=== PATIENT | male | born 1940 | race Caucasian/White ===

== ENCOUNTER 2022-02-02 16:15 | Outpatient (CLI) | payer OTHER, SELFPAY | END 2022-02-02 16:16 | disposition home or self-care (01) | LOC: NFLDUCREF 02-05 11:24 | PROVIDERS: PCP Internal Medicine; Visit Provider Registered Nurse | DX: R30.0 Dysuria (principal) | CPT/HCPCS: 87086 ==

== ENCOUNTER 2022-03-23 15:48 | Outpatient (CLI) | payer OTHER, SELFPAY ==
[2022-03-23 11:14] LABS: Albumin* 4.3 g/dL (3.3-5.0); Chloride* 108 mmol/L (96-114)
[2022-03-23 11:15] LABS: Potassium* 4.4 mmol/L (3.6-5.1); Sodium* 140 mmol/L (135-149)
[2022-03-23 11:17] LABS: Alkaline Phosphatase* 65 U/L (40-150); Aspartate Amino Transferase* 31 U/L (12-35); Bilirubin Total* 0.9 mg/dL (0.1-1.5); Blood Urea Nitrogen* 23 mg/dL (7-30); Carbon Dioxide* 26 mmol/L (20-32); Cholesterol* 164 mg/dL (90-199); Creatinine* 1.1 mg/dL (0.5-1.5); Estimated Glomerular Filt Rate 67 ml/min; Glucose* 98 mg/dL (60-115); Total Protein* 6.8 g/dL (6.0-8.3); Triglycerides* 136 mg/dL (40-149)
[2022-03-23 11:18] LABS: Alanine Aminotransferase* 22 U/L (4-50); Calcium* 8.9 mg/dL (8.4-10.6); HDL Cholesterol* 47 mg/dL (>=40); LDL Cholesterol Calculated 90 mg/dL (<100)
[2022-03-23 11:47] LABS: PSA Screen* 2.16 ng/mL (0.10-4.00)
== END 2022-03-23 15:49 | disposition home or self-care (01) ==
PROVIDERS: PCP Internal Medicine; Visit Provider Internal Medicine
DX: E78.5 Hyperlipidemia, unspecified (principal); I27.20 Pulmonary hypertension, unspecified; Z12.5 Encounter for screening for malignant neoplasm of prostate
CPT/HCPCS: 80053; 80061; 84153

== ENCOUNTER 2022-05-21 08:59 | Outpatient (CLI) | payer MEDICARE, SELFPAY ==
--- NOTE | 2022-05-21 09:15 | CRLHL7_ITS ---
For Patients: As a result of the Century Cures Act, medical imaging exams and procedure reports are released immediately into your electronic medical record. You may view this report before your referring provider. If you have questions, please contact your health care provider. INDICATION: 81-year-old male. Right knee pain. Possible hip pain. FINDINGS: Informed consent was obtained. Benefits and risks were discussed. The patient agreed to proceed. [place] protocol was followed. TIME-OUT conducted just prior to starting procedure confirmed patient identity, site/side, procedure, patient position, and availability of correct equipment. Pause for cause was performed. Utilizing sterile technique and 1 percent lidocaine for local anesthetic, a 22-gauge spinal needle was advanced into the right hip joint without difficulty. A small amount of nonionic contrast (4-5 cc nonionic Omnipaque 140) ) was instilled demonstrating the needle tip in the joint space. Subsequently, a mixture of 2 cc methylprednisolone 40 mg/mL and 4 cc of xylocaine 1 percent was instilled. The patient tolerated the injection well. No immediate complications. The patient stated that his hip did feel full and he had back pressure shortly after the procedure. This resolved quickly and spontaneously. 1 minute 31 seconds fluoroscopy time utilized. IMPRESSION: Technically successful fluoroscopically-guided right hip injection without immediate complications. Dictated by Teja Ayala MD @ 05/21/2022 11:20:18 AM (Electronically Signed)
== END 2022-05-21 09:00 | disposition home or self-care (01) ==
PROVIDERS: PCP Internal Medicine; Visit Provider Orthopaedic Surgery Sports Medicine
DX: M16.11 Unilateral primary osteoarthritis, right hip (principal)
CPT/HCPCS: 20610; 77002; Q9966

== ENCOUNTER 2022-08-17 14:24 | Outpatient (CLI) | payer MEDICARE, SELFPAY | END 2022-08-17 14:25 | disposition home or self-care (01) | PROVIDERS: PCP Internal Medicine; Visit Provider Internal Medicine | DX: Z01.818 Encounter for other preprocedural examination (principal) | CPT/HCPCS: 80048; 85610 ==

== ENCOUNTER 2022-11-16 08:41 | Outpatient (CLI) | payer MEDICARE, SELFPAY ==
--- OUTSIDE RECORDS SUMMARY | 2022-11-16 08:44 | XMS_ITS | Continuity of Care Document ---
Author Name Unknown Organization Z [facility] Address [address] [place] [address] [address] [place] [address] Phone Care Team Providers Care Spray Painter Helper Name Role Phone Estelita FELIZ, Ruth Unavailable Unavailable Allergies, Adverse Reactions, Alerts Substance Reaction Status Criticality epinephrine mental depression Active No Informa tion Medications Medication Instructions Dosage Effective Dates (start - stop) Status Comments TOPROL XL (unknown strength) Not Available - Active PRAVASTATIN SODIUM (unknown strength) Not Available - Active STANBACK ANALGESIC (unknown strength) Not Available - Active OMEPRAZOLE (unknown strength) Not Available - Active ANDRODERM (unknown strength) Not Available - Active VIAGRA (unknown strength) Not Available - Active VITAMIN C (unknown strength) Not Available - Active Procedures Procedure Date Postop Followup Visit Postop Followup Visit Decompress Lumbar Spinalcord Seg 2011 Pa Assist Decompress Lumbar Spinalcord S eg Office/Outpatient Visit,[facility] 2011 X-Ray Exam Of Lower Spine, Bending Advance Directives Directive Yes / No Effective Date File Name No Information Encounters Encounter Description Practice Location Reason(s) For Visit Diagnoses Date Provider Providers Copied on Encounter Z [facility], [address], [place], [address], [place] tel:[phone] [facility] No Information 4 Estelita Miranda. [facility], [address], [place], [place], [id number] , [place]. [phone] Z [facility], [address] [place] [address], [address], [place] tel:[phone] [facility] No Information Mar-0 201 2 Mehbod Amir. [facility], [address] [place] [address] [address], [place], [place], [id number] , [place]. tel:[phone] Referring Provider: Bennett Hussein [address], [address]. tel:[phone] Z [facility], [address] [place] [address], [address], [place] tel:[phone] [facility] No Information 2 Mehbod Amir. [facility], [address] [place] [address], [place], [id number] , [place]. tel:[phone] Referring Provider: Bennett Hussein [address], [address]. tel:[phone] Z [facility], [address] [place] [address], [address], [place] tel:[phone] [facility] No Information Dec-0 2 Mehbod Amir. [facility], [address] [place] [address] 600, [place], [place], [id number] , [place]. tel:[phone] Referring Provider: Bennett Hussein [address], [address]. tel:[phone] Office/Outpa tient Visit,New, Mod Z [facility], [address], [address], [place] tel:[phone] [facility] Hypertension, UnspecifiedAne pauly 2 Mehbod Amir. [facility], [address] [place] [address] [address], [place], [place], [id number] , [place]. tel:[phone] Family History Family Member Type Diagnosis Age At Onset Problem (finding) Problem (finding) Problem (finding) Payers Payer name Insurance type Covered republican ID Authoriza tion(s) Aetna CI [id number] Social History Type Description Quantity Date Captured Comments Sex Male Smoking Status No Information Chief Complaint And Reason For Visit No Information Reason For Referral Reason For Referral No Information History Of Present Illness Encounter Date Complaint History Of Prese nt Illness No Information Functional Status Date Functional Assessmen t No Information Instructions Date Instruction Additional Infor mation No Information Assessments Type Assessment Date No Information Patient Care Teams Name Effective Dates (start - stop) Status Members No Information
== END 2022-11-16 08:42 | disposition home or self-care (01) ==
PROVIDERS: PCP Internal Medicine; Visit Provider Internal Medicine
DX: J18.9 Pneumonia, unspecified organism (principal)
CPT/HCPCS: 80053

== ENCOUNTER 2023-03-25 08:05 | Outpatient (CLI) | payer MEDICARE, SELFPAY ==
--- OUTSIDE RECORDS SUMMARY | 2023-03-25 11:16 | XMS_ITS | Continuity of Care Document ---
Author Name Unknown Organization Z [facility] Address [address] [place] [address] [address] [place] [address] Phone Care Team Providers Care Business Law Professor Name Role Phone Estelita FELIZ, Ruth Unavailable [...] Assist Decompress Lumbar Spinalcord S eg Office/Outpatient Visit,[facility] 2011 X-Ray Exam Of Lower Spine, Bending Advance Directives Directive Yes / No Effective Date File Name No Information Encounters Encounter Description Practice Location Reason(s) For Visit Diagnoses Date Provider Providers Copied on Encounter Z [facility], [address] [facility] [address], [place], [address], [place] tel:[phone] [facility] Kina No Information 4 Esteliat Miranda. [facility], [address], [place], [place], [id number] , [place]. [phone] Z [facility], [address] [place] [address], [address], [place] tel:[phone] [facility] No Information Mar-0 201 2 Mehbod Amir. [facility], [address] [place] [address] 600, [place], [place], [id number] , [place]. tel:[phone] Referring Provider: Bennett Hussein [address], [address]. tel:[phone] Z [facility], [address] [place] [address], [address], [place] tel:[phone] [facility] No Information 2 Mehbod Amir. [facility], [address] [place] [address], [place], [id number] , [place]. tel:[phone] Referring Provider: Bennett Hussein [address], [address]. tel:[phone] Z [facility], [address] [place] [address], [address], [place] tel:[phone] [facility] No Information Dec-0 2 Mehbod Amir. [facility], [address] [place] [address] [address], [place], [place], [id number] , [place]. tel:[phone] Referring Provider: Bennett Hussein [address], [address]. tel:[phone] Office/Outpa tient Visit,New, Mod Z [facility], [address], [address], [place] tel:[phone] [facility] Hypertension, UnspecifiedAne pauly 2 Mehbod Amir. [facility], [address] [place] [address] [address], [place], [place], [id number] , [place]. tel:[phone] Family History Family Member Type Diagnosis Age At Onset Problem (finding) Problem (finding) Problem (finding) Payers Payer name Insurance type Covered libertarian ID Authoriza tion(s) Aetna CI [id number] Social History Type Description Quantity Date Captured [...]
== END 2023-03-25 08:06 | disposition home or self-care (01) ==
LOC: NFLDREF 11:15
PROVIDERS: PCP Internal Medicine; Referring Provider Internal Medicine; Visit Provider Internal Medicine
DX: E78.5 Hyperlipidemia, unspecified (principal); I27.20 Pulmonary hypertension, unspecified; Z12.5 Encounter for screening for malignant neoplasm of prostate
CPT/HCPCS: 80053; 80061; 84153

== ENCOUNTER 2023-12-09 08:45 | Outpatient (CLI) | payer MEDICARE, SELFPAY ==
--- OUTSIDE RECORDS SUMMARY | 2023-12-10 11:31 | XMS_ITS | Continuity of Care Document ---
Author Organization Z [facility] Address [address] [place] [address] [address] [place] [address] Phone Care Team Providers Care Processing Inspector Name Role Phone Ruth Capone MD Unavailable Unavailable Allergies, Adverse Reactions, Alerts Substance Reaction Status Criticality epinephrine mental depression Active No Informa tion Medications Medication Instructions Dosage Effective Dates (start - stop) Status Comments VITAMIN C (unknown strength) Not Available - Active VIAGRA (unknown strength) Not Available - Active ANDRODERM (unknown strength) Not Available - Active OMEPRAZOLE (unknown strength) Not Available - Active STANBACK ANALGESIC (unknown strength) Not Available - Active PRAVASTATIN SODIUM (unknown strength) Not Available - Active TOPROL XL (unknown strength) Not Available - Active Procedures Procedure Date Postop Followup Visit Postop Followup Visit Decompress Lumbar Spinalcord Seg 2011 Pa Assist Decompress Lumbar Spinalcord S eg [place] [place]am Of Lower Spine, Bending Advance Directives Directive Yes / No Effective Date File Name No Information Encounters Encounter Description Practice Location Reason(s) For Visit Diagnoses Date Provider Providers Copied on Encounter Z [facility], [address] [facility] [address], [place], [address], [place] tel:[phone] [facility] No Information 4 Estelita Miranda. [facility], [address] [place] [address] [address], [place], [place], [id number] , [place]. [phone] Z [facility], [address] [place], [place] [address] [address], [place], [address], [place] tel:[phone] [facility] No Information 3-201 2 Mehbod Amir. [facility], [address], [place], [place], [id number] , [place]. [phone] Referring Provider: Bennett Barrett [address], [place], [address]. tel:[phone] Z [facility], [address], [place], [address], [place] tel:[phone] [facility] No Information 5201 2 Mehbod Amir. [facility], [address], [place], [place], [id number] , [place]. [phone] Referring Provider: Bennett Barrett [address], [place], [address]. tel:[phone] Z [facility], [address], [place], [address], [place] tel:[phone] [facility] No Information 0 -201 2 Mehbod Amir. [facility], [address], [place], [place], [id number] , [place]. [phone] Referring Provider: Bennett Barrett [address], [place], [address]. tel:[phone] Office/[place]pa [place]ient [facility], [address] [place], [place] [address], [place], [address], [place] tel:[phone] [facility] Hypertension, UnspecifiedAne pauly 3[address] 2 Mehbod Amir. [facility], [address], [place], [place], [id number] , [place]. tel:[phone] Family History Family Member Type Diagnosis Age At Onset Problem (finding) Problem (finding) Problem (finding) Payers Payer name Insurance type Covered green party ID Authoriza tion(s) [employer] CI [id number] Social History Type Description Quantity Date Captured [...]
--- OUTSIDE RECORDS SUMMARY | 2023-12-10 11:31 | XMS_ITS | Clinical Summary ---
Author Organization [facility] Address [place], [place] [address] Care Team Providers Care Awning Maker And Installer Name Role Phone Jorge Moreno MD Primary Care Provider Allergies Active Allergy Reactions Criticality Noted Date Comments Epinephrine Mental Status Change 04/28/2007 24-48 hours of depression ?? The medication given to hip in dental office Iron GI Upset 12/29/2011 Medications Medication Sig Dispensed Refills Start Date End Date Status TOPROL XL 100 MG 24 HR TAB take one tablet by mouth daily 0 04/28/2007 Active ASPIRIN 81 MG CHEWABLE TAB take one tablet daily by mouth 0 04/28/2007 Active ANDRODERM 2.5 MG/24 HR TRANSDERM 24 HR PATCH leave it on for 24 h and replace... this was removed this am at 0700 0 04/28/2007 Active VIAGRA 50 MG TAB take one tablet as needed for ed 0 04/28/2007 Active omeprazole (PRILOSEC) 40 mg capsule Take 40 mg by mouth once daily. Active ferrous fumarate-vitamin c, 200-125 mg, 200 mg (66 mg iron)-125 mg Tab Take 1 tablet by mouth once daily with a meal. Takes only when he donates blood. 0 12/24/2011 Active pravastatin (PRAVACHOL) 80 mg tablet Take 80 mg by mouth at bedtime. Active oxyCODONE (ROXICODONE) 5 mg immediate release tablet Take 1-2 tablets by mouth every 4 hours if needed for Pain (For moderate pain). 90 tablet 0 12/30/2011 Active diazepam (VALIUM) 5 mg tablet Take 1 tablet by mouth every 6 hours if needed for Muscle Spasm. 40 tablet 0 12/30/2011 Active sennosides-docusate, 8.6-50 mg, (SENOKOT S) 8.6-50 mg tablet Take 1-4 tablets by mouth 2 times daily. 60 tablet 0 12/30/2011 Active Active Problems Problem Noted Date Diagnosed Date Lumbar radiculopathy - left L4 11/13/2011 Heartburn Overview: No active symptoms, controlled with prilosec. 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 Immunizations Name Administration Dates Next Due Pneumococcal Poly,23-Valent (Pneumovax) 11/27/19 10 Family History Medical History Relation Name Comments Stroke Father Relation Name Status Comments Father Social History Tobacco Use Types Packs/Day Years Used Date Smoking Tobacco: Never Smokeless Tobacco: Never Tobacco Cessation:Counseling Given: No Alcohol Use Standard Drinks/Week Comments Yes 0 (1 standard drink = 0.6 oz pur e alcohol) couple of beers per week Sex and Gender Information Value Date Recorded Sex Assigned at Not on file Gender Identity Not on file Sexual Orientation Not on file Obstetrics History Last Filed Vital Signs Vital Sign Reading Time Taken Comments Blood Pressure 101/56 12/30/2011 7:51 AM CDT Pulse 98 12/30/2011 7:51 AM CDT Temperature 37.3 ??C (99.1 ??F) 12/30/2011 7:51 AM CD T Respiratory Rate 16 12/30/2011 7:51 AM CDT Oxygen Saturation 96% 12/30/2011 7:51 AM CDT Inhaled Oxygen Concentration - - Weight 107.7 kg (237 lb 7 oz) 12/29/2011 10:32 A M CDT Height 177.8 cm (5' 10) 12/29/2011 10:32 AM CDT Body Mass Index 34.07 12/29/2011 10:32 AM CDT Plan of Treatment Health Maintenance Due Date Last Done Comments Tdap 12/13/1950 Depression screening for age 12+ 1951 BMI (ht and wt on same day) for age 18+ 12/13/1957 Tetanus booster 1959 Zoster (shingles) series for age 50+ (1 of 2) 12/13/18 90 Pneumococcal series for age 65+ (2 of 2 - PCV) 011 11/26/2009 COVID-19 vaccine series (2022- season) 3 Influenza for age 65+ 12/26/2023 Advance Directives * Full Code (Latest Code Status on File) Date Activated Date Inactivated Comments 12/29/2011 7:37 PM 12/30/2011 5:46 PM * Full Code Date Activated Date Inactivated Comments 12/29/2011 9:36 AM 12/29/2011 7:37 PM Care Teams Awning Maker And Installer Relationship Specialty Start Date End Date Jorge Moreno MD [address] [place] [address] PCP - General 04/28/07
== END 2023-12-09 08:46 | disposition home or self-care (01) ==
LOC: NFLDREF 12-10 11:29
PROVIDERS: PCP Internal Medicine; Referring Provider Internal Medicine; Visit Provider Internal Medicine
DX: E78.5 Hyperlipidemia, unspecified (principal); D64.9 Anemia, unspecified; Z12.5 Encounter for screening for malignant neoplasm of prostate
CPT/HCPCS: 80053; 80061; G0103

== ENCOUNTER 2023-12-22 14:46 | Outpatient (CLI) | payer MEDICARE, SELFPAY ==
--- OUTSIDE RECORDS SUMMARY | 2023-12-22 14:48 | XMS_ITS | Clinical Summary ---
Author Organization [facility] Address [place], [place] [address] Care Team Providers Care Accounting Bookkeeper Name Role Phone Jorge Moreno MD Primary [...] 9:36 AM 12/29/2011 7:37 PM Care Teams Accounting Bookkeeper Relationship Specialty Start Date End Date Jorge Moreno MD [address] [place] [address] PCP - General 04/28/07
--- OUTSIDE RECORDS SUMMARY | 2023-12-22 14:48 | XMS_ITS | Continuity of Care Document ---
Author Organization Z [facility] Address [address] [place] [address] [address] [place] [address] Phone Care Team Providers Care Partition Making Machine Operator Name Role Phone Ruth Capone MD Unavailable [...] Assist Decompress Lumbar Spinalcord S eg Office/Outpatient Visit,[facility], [facility] [place]Ray Exam Of Lower Spine, Bending Advance Directives Directive Yes / No Effective Date File Name No Information Encounters Encounter Description Practice Location Reason(s) For Visit Diagnoses Date Provider Providers Copied on Encounter Z [facility], [address], [place], [address], [place] tel:[phone] [facility] No Information 4 Estelita Miranda. [facility], [address] [place] [address] [address], [place], [place], [id number] , [place]. [phone] [facility], [address] [place], [place] [address] [address], [place], [address], [place] tel:[phone] [facility] No Information 3-201 2 Mehbod Amir. [facility], [address], [place], [place], [id number] , [place]. [phone] Referring Provider: Bennett Barrett [address], [place], [address]. tel:[phone] [facility], [address], [place], [address], [place] tel:[phone] [facility] No Information 5201 2 Mehbod Amir. [facility], [address], [place], [place], [id number] , [place]. [phone] Referring Provider: Bennett Barrett [address], [place], [address]. tel:[phone] Z [facility], [address], [place], [address], [place] tel:[phone] [facility] No Information 0 -201 2 Mehbod Amir. [facility], [address], [place], [place], [id number] , [place]. [phone] Referring Provider: Bennett Barrett [address], [place], [address]. tel:[phone] Office/Outpa tient Visit,[facility], [facility] [place] [facility], [address] [place], [place] [address] [address], [place], [address], [place] tel:[phone] [facility] Hypertension, UnspecifiedAne pauly 3[address] 2 Mehbod Amir. [facility], [address], [place], [place], [id number] , [place]. tel:[phone] Family History Family Member Type Diagnosis Age At Onset Problem (finding) Problem (finding) Problem (finding) Payers Payer name Insurance type Covered green party ID Authoriza tion(s) [employer] CI [id number] Social History Type Description Quantity Date Captured [...]
--- NOTE | 2023-12-22 15:00 | CRLHL7_ITS ---
For Patients: As a result of the Century Cures Act, medical imaging exams and procedure reports are released immediately into your electronic medical record. You may view this report before your referring provider. If you have questions, please contact your health care provider. INDICATION: Sinus pressure. Drainage. TECHNIQUE: High-resolution CT images through the paranasal sinuses were obtained without contrast multiplanar reconstructions. FINDINGS: Maxillary: The inflammatory mucosal thickening is most prominent at the base of the bilateral maxillary sinuses measures 12 mm or less on the left 10 mm or less on the right. There is associated mucosal narrowing of the bilateral ostiomeatal units. Ethmoid: Opacification of several of the anterior ethmoid air cells bilaterally. Frontal: Moderate inflammatory mucosal thickening in the bilateral frontal air cells and opacification of the inferior frontal recesses bilaterally. Sphenoid: Minimal mucosal thickening near the sphenoid ethmoidal recesses and sphenoid air cells are otherwise clear. Nasal fossa: A demetris bullosa of the right middle nasal turbinate. The small leftward directed nasal septal spur and mild convex right curve of the nasal septum. Nasopharynx unremarkable. Incidentally noted opacifications of numerous left mastoid air cells. There is nonspecific tissue in the left external auditory canal and partial opacification of the left Prussak`s space. Temporal bone CT would be useful. IMPRESSION: 1. Moderate inflammatory mucosal thickening in the bilateral maxillary, anterior ethmoid air cells and inferior frontal sinuses bilaterally. 2. Associated mucosal narrowing of the bilateral ostiomeatal units. 3. Mild nasal septal curvature and small leftward directed septal spur. 4. Incidental findings in the left mastoid middle ear consistent with chronic otomastoiditis. Small cholesteatoma not excluded. Please note that all CT scans at this facility use dose modulation, iterative reconstruction, and/or weight-based dosing when appropriate to reduce radiation dose to as low as reasonably achievable. Dictated by Teja Light MD @ 12/23/2023 7:53:22 AM (Electronically Signed)
== END 2023-12-22 14:47 | disposition home or self-care (01) ==
LOC: CT 14:47
PROVIDERS: PCP Internal Medicine; Visit Provider Internal Medicine
DX: J34.89 Other specified disorders of nose and nasal sinuses (principal); J32.0 Chronic maxillary sinusitis; J34.2 Deviated nasal septum
CPT/HCPCS: 70486

== ENCOUNTER 2024-02-08 07:44 | Outpatient (CLI) | payer MEDICARE, SELFPAY ==
--- OUTSIDE RECORDS SUMMARY | 2024-02-08 07:46 | XMS_ITS | Continuity of Care Document ---
Author Organization [facility] Address [address] [place] [address] [address] [place] [address] Phone Care Team Providers Care Malt Roaster Name Role Phone Ruth Capone MD Unavailable [...] Assist Decompress Lumbar Spinalcord S eg Office/Outpatient Visit,[facility], [facility] 2011 X-Ray Exam Of Lower Spine, Bending Advance Directives Directive Yes / No Effective Date File Name No Information Encounters Encounter Description Practice Location Reason(s) For Visit Diagnoses Date Provider Providers Copied on Encounter [facility], [address] [place], [place] [address], [place], [address], [place] tel:[phone] [facility] No Information 4 Estelita Miranda. [facility], [address] [place] [address] [address], [place], [place], [id number] , [place]. [phone] [facility], [address] [place], [place] [address], [place], [address], [place] tel:[phone] [facility] No Information 3-201 2 Mehbod Amir. [facility], [address], [place], [place], [id number] , [place]. [phone] Referring Provider: Bennett Barrett [address], [place], [address]. tel:[phone] [facility], [address], [place], [address], [place] tel:[phone] [facility] No Information 5201 2 Mehbod Amir. [facility], [address], [place], [place], [id number] , [place]. [phone] Referring Provider: Bennett Barrett [address], [place], [address]. tel:[phone] [facility], [address], [place], [address], [place] tel:[phone] [facility] No Information 0 -201 2 Mehbod Amir. [facility], [address], [place], [place], [id number] , [place]. [phone] Referring Provider: Bennett Barrett [address], [place], [address]. tel:[phone] Office/Outpa tient Visit,[facility], [facility], [address] [place], [place] [address], [place], [address], [place] tel:[phone] [facility] Hypertension, UnspecifiedAne pauly 3201 2 Mehbod Amir. [facility], [address], [place], [place], [id number] , [place]. tel:[phone] Family History Family Member Type Diagnosis Age At Onset Problem (finding) Problem (finding) Problem (finding) Payers Payer name Insurance type Covered libertarian ID Authoriza tion(s) [employer] CI [id number] Social History Type Description Quantity Date Captured [...]
--- OUTSIDE RECORDS SUMMARY | 2024-02-08 07:47 | XMS_ITS | Clinical Summary ---
Author Organization [facility] Address [place], [place] [address] Care Team Providers Care Licensed Psychologist Director Name Role Phone Jorge Moreno MD Primary [...] Lumbar radiculopathy - left L4 11/13/2011 Heartburn Overview (12/26/2011): No active symptoms, controlled with prilosec. HTN (hypertension) Overview (12/26/2011): Controlled on toprol xl Sleep apnea Overview (12/24/2011): noncompliant CPAP Hypercholesteremia Overview (12/26/2011): pravachol Anemia Overview (12/26/2011): hgb 11.9 , baseline for 3 yrs due, he donate blood every 2-3 months, Iron daily Lumbar herniated disc Resolved Problems Problem Noted Date Diagnosed Date Resolved Date Displacement of lumbar inter vertebral disc without myelopathy 11/13/2011 12/26/2011 Lesion of plantar nerve 01/16/200804/2011 Other specified viral warts 04/28/2007 12/26/2011 Enthesopathy of ankle and tarsus, unspecified 04/28/19 08 12/26/2011 Hayfever 12/26/2011 Overview (12/24/2011): childhood Immunizations Name Administration Dates Next Due [...] (2 of 2 - PCV) 011 11/26/2009 RSV vaccine for adults or pr egnancy (1 - 1-dose 75+ series) 12/13/2014 COVID-19 vaccine series (2023- season) Influenza for age 65+ 12/26/2023 Advance Directives * Full Code (Latest Code Status on File) Date Activated Date Inactivated Comments 12/29/2011 7:37 PM 12/30/2011 5:46 PM * Full Code Date Activated Date Inactivated Comments 12/29/2011 9:36 AM 12/29/2011 7:37 PM Care Teams Licensed Psychologist Director Relationship Specialty Start Date End Date Jorge Moreno MD [address] [place] [id number] PCP - General 04/28/07
--- NOTE | 2024-02-08 08:00 | CRLHL7_ITS ---
For Patients: As a result of the Century Cures Act, medical imaging exams and procedure reports are released immediately into your electronic medical record. You may view this report before your referring provider. If you have questions, please contact your health care provider. Indication: Chronic sinusitis, bilateral ear drainage. Technique: Noncontrast CT of the temporal bones with multiplanar reconstruction utilizing bone and soft tissue algorithms. Comparison: None available. Findings: Right: Partially imaged 1.5 cm soft tissue density intraparotid lesion (series 3, image 5). Trace opacification of the mastoid tip. Patent external auditory canal. Focal soft tissue density within mesotympanum about the incudostapedial joint. No convincing ossicular erosion. Normal cochlea and vestibule, seen right superior semicircular canal (series 7, image 67). Normal carotid and facial nerve canals. Left: Partial opacification of the mastoid air cells with small fluid levels. No evidence of septal resorption. Patent external auditory canal. Clear middle ear cavity. The ossicles appear within normal limits. The cochlea, vestibule, and semicircular canals are unremarkable. Normal carotid and facial nerve canals. Other: Scattered opacification of the paranasal sinuses with small dependent maxillary sinus fluid levels. Impression: 1. Partial opacification of the left mastoid air cells with small fluid level suggestive of acute mastoiditis. 2. Focal soft tissue density within the mesotympanum about the incudostapedial joint. 3. Decrease in right superior semicircular canal. 4. 1.5 cm partially imaged soft tissue density lesion within the parotid gland, which may represent an enlarged lymph node or primary parotid lesion. 5. Scattered paranasal sinus opacification with small maxillary fluid levels indicating acute sinusitis. Please note that all CT scans at this facility use dose modulation, iterative reconstruction, and/or weight-based dosing when appropriate to reduce radiation dose to as low as reasonably achievable. Dictated by Rudi Ricci MD @ 02/08/2024 2:14:21 PM (Electronically Signed)
== END 2024-02-08 07:45 | disposition home or self-care (01) ==
LOC: CT 07:45
PROVIDERS: PCP Internal Medicine; Visit Provider Otolaryngology
DX: J32.9 Chronic sinusitis, unspecified (principal); R59.0 Localized enlarged lymph nodes; J32.0 Chronic maxillary sinusitis; D11.0 Benign neoplasm of parotid gland
CPT/HCPCS: 70480

== ENCOUNTER 2024-05-17 07:04 | Outpatient (CLI) | payer MEDICARE, SELFPAY ==
--- NOTE | 2024-05-17 07:15 | CRLHL7_ITS ---
For Patients: As a result of the Cures Act, medical imaging exams and procedure reports are released immediately into your electronic medical record. You may view this report before your referring provider. If you have questions, please contact your health care provider. INDICATION: Right parotid mass on recent CT. TECHNIQUE: Focused ultrasound of the right parotid gland. Grayscale and color Doppler images. COMPARISON: 02/08/2024 CT IACs. FINDINGS: 1.8 cm simple cyst in the right parotid gland. This corresponds to the CT abnormality. This should be benign. Dictated by Gilles Rivas MD @ 05/17/2024 8:53:19 AM (Electronically Signed)
== END 2024-05-17 07:05 | disposition home or self-care (01) ==
LOC: US 07:06
PROVIDERS: PCP Internal Medicine; Visit Provider Otolaryngology
DX: K11.8 Other diseases of salivary glands (principal); K11.6 Mucocele of salivary gland
CPT/HCPCS: 76536

== ENCOUNTER 2024-07-31 08:45 | Inpatient (IN) | payer MEDICARE, SELFPAY ==
[2024-07-31] VITALS (36 sets, daily range): BP systolic 124–160; BP diastolic 56–89; PULSE 56–96; RESP 4–20; TEMP 36.3–36.6; O2SAT 81–100; BMI 34.7; BMI 35.7
--- OUTSIDE RECORDS SUMMARY | 2024-07-31 08:48 | XMS_ITS | Clinical Summary ---
Author Organization [employer] [facility] Address [address] [place] [id number] Care Team Providers Care Crown And Bridge Technician Name Role Phone Jorge Moreno MD Primary Care Provider Allergies Active Allergy Reactions Criticality Noted Date Comments Epinephrine Mental Status Change 04/28/2007 24-48 hours of depression The medication given to hip in dental office Iron GI Upset 12/29/2011 Medications TOPROL XL 100 MG 24 HR TAB [...] mg by mouth once daily. Active ferrous fumarate-vitami n c, 200-125 mg, 200 mg (66 mg [...] Muscle Spasm. 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 Gender Identity Not on file Sexual Orientation Not on file Obstetrics History Last Filed Vital Signs Vital Sign Reading Time Taken Comments Blood Pressure 101/56 12/30/2011 7:51 AM CDT Pulse 98 12/30/2011 7:51 AM CDT Temperature 37.3 C (99.1 F) 12/30/2011 7:51 AM CDT Respiratory Rate 16 12/30/2011 7:51 AM CDT [...] 2) 12/13/18 90 Pneumococcal series for age 50+ (2 of 2 - PCV) 011 11/26/2009 RSV vaccine for adults or pr egnancy (1 - 1-dose 75+ series) 12/13/2014 COVID-19 vaccine series ( - season) Influenza Vaccine (Season Ended) 2024 Insurance [employer] MR Advance Directives * Full Code (Latest Code Status on File) Date Activated Date Inactivated Comments 12/29/2011 7:37 PM 12/30/2011 5:46 PM * Full Code Date Activated Date Inactivated Comments 12/29/2011 9:36 AM 12/29/2011 7:37 PM Care Teams Crown And Bridge Technician Relationship Specialty Start Date End Date Jorge Moreno MD [address] [place] [id number] PCP - General 04/28/07
--- NOTE | 2024-07-31 09:09 | CRLHL7_ITS ---
For Patients: As a result of the Century Cures Act, medical imaging exams and procedure reports are released immediately into your electronic medical record. You may view this report before your referring provider. If you have questions, please contact your health care provider. INDICATION: Clinical signs and symptoms of an acute stroke. Left arm numbness. Altered mental status/fogginess. COMPARISON: December 14, 2023 TECHNIQUE: CT examination of the head was performed as axial sections without intravenous contrast. Images were obtained from the vertex of the skull through the skull base. Please note that all CT scans at this facility use dose modulation, iterative reconstruction, and/or weight-based dosing when appropriate to reduce radiation dose to as low as reasonably achievable. FINDINGS: The brain shows no sign of mass lesion, mass effect, hemorrhage, or edema. There are involutional changes. There is moderate to severe cortical atrophy and there is moderate to severe white matter disease. There is no hydrocephalus. Nonacute appearing bilateral subcortical infarcts. The visualized portions of the orbits are normal in appearance. The osseous structures are normal in appearance with no sign of abnormality in the skull base or calvarium. The above findings were relayed to Dr. Arcos at 9:32 a.m. on July 31, 2024 IMPRESSION: Involutional changes. No acute-appearing findings. Please note that all CT scans at this facility use dose modulation, iterative reconstruction, and/or weight-based dosing when appropriate to reduce radiation dose to as low as reasonably achievable. Dictated by Collin Zuñiga MD @ 07/31/2024 9:33:38 AM (Electronically Signed)
--- NOTE | 2024-07-31 09:11 | CRLHL7_ITS ---
For Patients: As a result of the Cures Act, medical imaging exams and procedure reports are released immediately into your electronic medical record. You may view this report before your referring provider. If you have questions, please contact your health care provider. INDICATION: Stroke. COMPARISON: November 16, 2022 TECHNIQUE: PA and lateral views of the chest were acquired FINDINGS: TUBES AND LINES: None. HEART AND MEDIASTINUM: The heart size is normal. The mediastinal contour appears normal for patient age. LUNGS AND PLEURAL SPACES: The lungs appear normal.The pleural spaces are unremarkable. OSSEOUS STRUCTURES: Age-appropriate appearance. No acute focal finding. IMPRESSION: No evidence of active pulmonary disease when compared to November 16, 2022. Dictated by Collin Zuñiga MD @ 07/31/2024 10:55:44 AM (Electronically Signed)
--- NOTE | 2024-07-31 09:11 | CRLHL7_ITS ---
For Patients: As a result of the Century Cures Act, medical imaging exams and procedure reports are released immediately into your electronic medical record. You may view this report before your referring provider. If you have questions, please contact your health care provider. DATE: 07/31/2024 CLINICAL HISTORY: Patient with focal neurological deficits. TECHNIQUE: Standard helical CT image acquisition through the intracranial circulation following intravenous administration of contrast material with bolus tracking. 2D and 3D MIP images for post-processing were performed and interpreted on an independent workstation and 3D images were permanently archived. COMPARISON: CT same day. FINDINGS: There is no cerebral aneurysm or large vessel occlusion. There is intracranial atherosclerosis with moderate narrowing in the right posterior cerebral artery and left vertebral artery. The right internal carotid artery is normal. The right middle cerebral artery and its branches are normal. The right anterior cerebral artery and its branches are normal. The left internal carotid artery is normal. The left middle cerebral artery and its branches are normal. The left anterior cerebral artery and its branches are normal. The anterior communicating artery is well visualized and appears normal. The right vertebral artery and PICA are normal. The right vertebral artery is dominant. The basilar artery is patent and appears normal. The left posterior cerebral artery is normal. IMPRESSION: 1. No cerebral aneurysm or large vessel occlusion. 2. Intracranial atherosclerosis with moderate narrowing in the right posterior cerebral artery and left vertebral artery. Please note that all CT scans at this facility use dose modulation, iterative reconstruction, and/or weight-based dosing when appropriate to reduce radiation dose to as low as reasonably achievable. Dictated by Arturo Dennis MD @ 07/31/2024 1:06:05 PM (Electronically Signed)
--- NOTE | 2024-07-31 09:11 | CRLHL7_ITS ---
For Patients: As a result of the Century Cures Act, medical imaging exams and procedure reports are released immediately into your electronic medical record. You may view this report before your referring provider. If you have questions, please contact your health care provider. DATE: 07/31/2024 CLINICAL HISTORY: Patient with focal neurological deficits. TECHNIQUE: Standard helical CT image acquisition of the neck up to the skull base after bolus intravenous contrast enhancement. 2D and 3D MIP images for post-processing were performed and interpreted on an independent workstation and 3D images were permanently archived. COMPARISON: CT same day. FINDINGS: The origins of the great vessels from the aortic arch are patent. The origin of the right vertebral artery is patent. The origin of the left vertebral artery is patent. The common carotid arteries are patent. There is no stenosis at the origin of the right internal carotid artery. There is no stenosis at the origin of the left internal carotid artery. The rest of the cervical segments of the internal carotid arteries are patent up to the skull base. The vertebral arteries are codominant. The cervical segments of the vertebral arteries are patent up to the skull base. The visualized lung apices are unremarkable. The thyroid gland is unremarkable. The soft tissues of the neck demonstrate a 1.6cm solid lesion in the right parotid gland. There are degenerative changes in the cervical spine. IMPRESSION: 1. Patent cervical vasculature. 2. 1.6cm solid right parotid lesion. Further evaluation with a neck MRI with contrast or tissue sampling is recommended. Please note that all CT scans at this facility use dose modulation, iterative reconstruction, and/or weight-based dosing when appropriate to reduce radiation dose to as low as reasonably achievable. Dictated by Arturo Dennis MD @ 07/31/2024 1:02:16 PM (Electronically Signed)
--- NOTE | 2024-07-31 09:12 | ED.GENADULT ---
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 History is obtained primarily from the patient. He has a detailed historian. He has a history of sleep apnea and uses a CPAP. He has a history of anemia. He takes baby aspirin. He has a history of hypertension, hyperlipidemia, history of kidney stones. He did not have any history of previous stroke. He follows with Dr. Moreno for primary care. He has been healthy and well lately. He went to bed around 11:00 p.m. last night and felt normal. He slept well overnight and did not have to get up to go to the bathroom. When he woke up at about 7 this morning he noticed that his left arm was not right. He says ?my brain did not know where my left arm was. ?. Says it is not really weak. It is not really numb, she is having trouble moving it. He is not having any other symptoms. No blurry vision. No facial droop. No slurred speech. No left leg trouble. No headache. He takes baby aspirin but no other anticoagulants. Related Data Home Medications ?Medication ?Instructions ?Recorded ?Confirmed iron,carbonyl 65 mg-vitamin C 125 1 tab PO QDAY 11/16/22 02/01/24 mg tablet,delayed release (Vitron-C) Previous Rx's ?Medication ?Instructions ?Recorded aspirin 81 mg tablet,delayed 81 mg PO BID #50 tabs 09/03/22 release tadalafil 5 mg tablet (Cialis) 5 mg PO QDAY #20 tabs 10/20/23 triamcinolone acetonide 0.1 % 1 applic topical BID #30 grams 11/24/23 topical cream amoxicillin 875 mg tablet 875 mg PO BID #20 tabs 01/18/24 pravastatin 80 mg tablet 80 mg PO Q48H Hyperlipidemia #90 06/01/24 tabs omeprazole 40 mg capsule,delayed 40 mg PO BID GERD #180 caps 06/22/24 release testosterone 2 pump topical QDAY Low 07/12/24 Testosterone #75 grams metoprolol succinate 100 mg 100 mg PO DAILY #60 tabs 07/28/24 tablet,extended release 24 hr Allergies Allergy/AdvReac Type Severity Reaction Status Date / Time epinephrine Allergy Severe Depression Verified 07/31/24 10:19 [facility] Medical History (Updated 07/31/24 @ 13:59 by Tito Sumner MD) Mixed hearing loss ?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 - Mixed conductive and sensorineural hearing loss, unspecified (ICD-10) Chronic sinusitis ?J32.9 - Chronic sinusitis, unspecified (ICD-10) Fatigue ?R53.83 - Other fatigue (ICD-10) Erectile dysfunction ?N52.9 - Male erectile dysfunction, unspecified (ICD-10) Acute postoperative anemia due to greater than expected blood loss ?D62 - Acute posthemorrhagic anemia (ICD-10) Pneumonia ?J18.9 - Pneumonia, unspecified organism (ICD-10) Sleep apnea treated with continuous positive airway pressure (CPAP) ?G47.30 - Sleep apnea, unspecified (ICD-10) GERD (gastroesophageal reflux disease) ?K21.9 - Gastro-esophageal reflux disease without esophagitis (ICD-10) Pulmonary hypertension ?I27.20 - Pulmonary hypertension, unspecified (ICD-10) Surgical History History of myringotomy (09/22/19) ?Z98.890 - Other specified postprocedural states (ICD-10) Status post total hip replacement, 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) What is your current living situation?: I presently have a place to live Problems where you live: no known problems In the past 12 months, utilities in danger of being shut off: no In past 12 months, lack of transportation kept you from medical appts, meetings, work, or getting things needed for daily living: no In the past 12 mos, have been you worried that your food would run out before you had money to buy more?: never true In the past 12 mos, the food you bought just didn't last and you didn't have money to buy more?: never true Smoking Status: Never smoker Do you use any of these nicotine containing products: None How often do you have a drink containing alcohol: 2-3 times a week Alcohol type: beer and hard liquor How many standard drinks containing alcohol do you have on a typical day: 1 or 2 How often do you have six or more drinks on one occasion: Never AUDIT-C Alcohol total score: 3 Non-prescribed substance use: denies use Caffeine: No How often does anyone, including family, friends and others, physically hurt you: never How often does anyone, including family, friends and others, insult or talk down to you: never How often does anyone, including family, friends and others, threaten you with harm: never How often does anyone, including family, friends and others, scream or curse at you: never Exam Narrative: Exam Narrative: Constitutional: Appears well-developed and well-nourished. Alert. Conversant. Non toxic. HENT: Head: Atraumatic. Nose: Nose normal. Mouth/Throat: Oral mucosa is clear and moist. no trismus. Pharynx normal. Tonsils symmetric. No tonsillar enlargement, erythema, or exudate. Eyes: Conjunctivae normal. EOM normal. Pupils equal, round, and reactive to light. No scleral icterus. Neck: Normal range of motion. Neck supple. No tracheal deviation present. Cardiovascular: Normal rate, regular rhythm. No gallop. No friction rub. No murmur heard. Symmetric radial artery pulses Pulmonary/Chest: Effort normal. No stridor. No respiratory distress. No wheezes. No rales. No rhonchi . No tenderness. Abdominal: Soft. No distension. No mass. No tenderness. No rebound. No guarding. Musculoskeletal: RUE: Normal range of motion. No tenderness. No deformity LUE: Normal range of motion. No tenderness. No deformity RLE: Normal range of motion. No edema. No tenderness. No deformity LLE: Normal range of motion. No edema. No tenderness. No deformity Neurological: Mental status normal. Attention normal. Alert and oriented x3. GCS 15. Memory normal. Speech fluent. Cognition normal. Cranial Nerves intact II-XII except I did not formally test gag or visual acuity. EOMI. Palate elevates symmetrically and tongue protrudes in the midline. Strength: 5/5 trapezius on the right and left 5/5 deltoid on the right and left 5/5 biceps on the right and left 5/5 triceps on the right and left 5/5 sand technologist on the right and left 5/5 thumb opposition on the right and left 5/5 finger abduction on the right and left 5/5 hip flexors (L3) on the right and left 5/5 quadriceps (L4) on the right and left 5/5 tibialis anterior on the right and left 5/5 EHL (L5) on the right and left 5/5 gastrocnemius (S1) on the right and left 5/5 hamstring on the right and left Sensation intact to light touch in both upper extremities (C4-T1) Sensation intact to light touch in Both lower extremities (L4-S1). Hzsitq-wf-udto in left arm is slow and inaccurate. Normal wuwsuy-mm-roup in the right arm. Heel-aponte is essentially normal bilaterally, perhaps a little bit slower in the left leg than the right but that may be subjective. Skin: Skin is warm and dry. No rash noted. No pallor. Normal capillary refill. Psychiatric: Normal mood. Normal affect. Const: Vital Signs, click to edit/add: Vital Signs - 24 hr 07/31/24 08:52 07/31/24 09:00 07/31/24 09:40 Temperature 97.4 F L Pulse Rate 70 Pulse Rate [Pulse Oximeter] 77 77 Respiratory Rate 18 18 Blood Pressure Blood Pressure [Ri ght Upper Arm] 155/79 H 155/79 H Pulse Oximetry 98 98 96 Oxygen Delivery Me thod Room Air Room Air 07/31/24 09:44 07/31/24 09:45 07/31/24 10:00 Temperature Pulse Rate 70 Pulse Rate [Pulse Oximeter] 70 65 Respiratory Rate 18 18 16 Blood Pressure 142/72 H Blood Pressure [Ri ght Upper Arm] 142/72 H 145/82 H Pulse Oximetry 96 96 96 Oxygen Delivery Me thod Room Air Room Air 07/31/24 10:15 07/31/24 10:30 07/31/24 12:00 Temperature Pulse Rate Pulse Rate [Pulse Oximeter] 66 61 60 Respiratory Rate 18 17 16 Blood Pressure Blood Pressure [Ri ght Upper Arm] 137/70 149/73 H 124/56 L Pulse Oximetry 95 95 [facility] 07/31/24 12:06 07/31/24 12:10 07/31/24 12:11 Temperature Pulse Rate 58 L 57 L Pulse Rate [Pulse Oximeter] Respiratory Rate 16 7 L 10 L Blood Pressure 124/56 L Blood Pressure [Ri ght Upper Arm] Pulse Oximetry 98 97 98 [facility] 07/31/24 12:15 07/31/24 12:15 07/31/24 12:17 Temperature Pulse Rate 56 L 56 L Pulse Rate [Pulse Oximeter] 62 Respiratory Rate 10 L 18 7 L Blood Pressure 131/67 Blood Pressure [Ri ght Upper Arm] 131/67 Pulse Oximetry 99 100 Oxygen Delivery [facility] 07/31/24 12:20 07/31/24 12:30 07/31/24 12:33 Temperature Pulse Rate Pulse Rate [Pulse Oximeter] Respiratory Rate 4 L 8 L 11 L Blood Pressure 160/83 H Blood Pressure [Ri ght Upper Arm] Pulse Oximetry 81 L [facility] 07/[facility] 12:40 07/31/24 12:45 07/31/24 12:45 Temperature Pulse Rate Pulse Rate [Pulse Oximeter] 61 Respiratory Rate 12 11 L 15 Blood Pressure Blood Pressure [Ri ght Upper Arm] 153/81 H Pulse Oximetry 96 Oxygen Delivery [facility] Room Air 07/31/24 12:47 07/31/24 12:50 07/31/24 13:00 Temperature Pulse Rate Pulse Rate [Pulse Oximeter] Respiratory Rate 19 9 L 17 Blood Pressure 153/81 H Blood Pressure [Ri ght Upper Arm] Pulse Oximetry [facility] 07/[facility] 13:10 07/31/24 13:15 07/31/24 13:15 Temperature Pulse Rate Pulse Rate [Pulse Oximeter] 59 L Respiratory Rate 8 L 20 20 Blood Pressure Blood Pressure [Ri ght Upper Arm] 140/89 H Pulse Oximetry 96 [facility] 07/[facility] 13:17 07/31/24 13:20 07/31/24 13:30 Temperature Pulse Rate Pulse Rate [Pulse Oximeter] Respiratory Rate 16 17 16 Blood Pressure 140/89 H Blood Pressure [Ri ght Upper Arm] Pulse Oximetry Oxygen Delivery Me thod 07/31/24 13:35 07/31/24 13:45 07/31/24 13:47 Temperature Pulse Rate Pulse Rate [Pulse Oximeter] Respiratory Rate 12 13 Blood Pressure 137/80 130/70 Blood Pressure [Ri ght Upper Arm] Pulse Oximetry Oxygen Delivery Me thod Course Course ED Course: Patient seen in ER bed 5 and stroke activation was called as he was brought to the room. On my initial evaluation NIHSS 2 (left arm ataxia and potential neglect). Discussed with Stroke Neurology by portable phone in the patient's room during his initial assessment. Dr. Acosta recommends that with wake-up stroke with relatively minor symptoms that we skipped CT scan and go straight to MRI, MRA. However, since MRI cannot be obtained for at least the next 2 or 2-1/2 hours, we will get noncon head CT (and if kidney function allows, get CTA )now. Vital Signs Vital signs: Initial Vital Signs Temperature 97.4 F L 07/31/24 08:52 Temperature Source Temporal Artery Scan 07/31/24 08:52 Pulse Rate 77 07/31/24 08:52 Respiratory Rate 18 07/31/24 08:52 Blood Pressure 155/79 H 07/31/24 08:52 Blood Pressure Mean 104 07/31/24 08:52 Blood Pressure Position Sitting 07/31/24 08:52 Pulse Oximetry 98 07/31/24 08:52 Oxygen Delivery Method Room Air 07/31/24 08:52 Vital Signs Temperature 97.4 F L 07/31/24 08:52 Pulse Rate 77 07/31/24 08:52 Respiratory Rate 18 07/31/24 08:52 Blood Pressure 155/79 H 07/31/24 08:52 Pulse Oximetry 98 07/31/24 08:52 Oxygen Delivery Method Room Air 07/31/24 08:52 Temperature 97.4 F L 07/31/24 08:52 Pulse Rate 59 L 07/31/24 13:15 Respiratory Rate 13 07/31/24 13:47 Blood Pressure 130/70 07/31/24 13:47 Pulse Oximetry 96 07/31/24 13:15 Oxygen Delivery Method Room Air 07/31/24 12:45 Medications Administered Medications: Discontinued Medications Generic Name Dose Route Start Last Admin Trade Name Mannie PRN Reason Stop Dose Admin Aspirin 325 mg 07/31/24 12:17 07/31/24 12:58 Aspirin Ec 325 Mg Tablet PO 07/31/24 12:18 325 mg ONCE ONE Administration Medical Decision Making MDM Narrative Medical decision making narrative: Pleasant 83-year-old gentleman presenting to the ER today with onset of new left upper extremity incoordination that he 1st noticed upon awakening at 7:00 a.m. this morning. Last known well time was 11:00 p.m. last night. He was outside the window for IV thrombolytics but we activate a stroke team call down. Neurology recommended MRI, which is available today but would be delayed by several hours. Given potential for intra-arterial intervention, we obtained CT of his head which was negative and CT angiogram which showed no large vessel occlusion. 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 In consultation with Neurology, who did a tele stroke evaluation they recommended that we start the patient on aspirin 325 mg daily today. First dose given in the ER. They recommended continuing aspirin indefinitely. They also recommend Plavix 75 mg daily for 21 days and then stop. They recommend admission for echo and monitoring for AFib. Discharge with Zio patch to look for other paroxysmal AFib. Patient and his are comfortable this plan of care. 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 Discussed with the patient. He will need outpatient follow-up with ENT. Discussed with hospitalist, CHETAN Townsend. please see hospitalist notes for further details about admission status and further workup. Lab Data Labs: Lab Results 07/31/24 Range/Units 09:05 WBC 5.51 (4.50-11.00) K/uL RBC 5.46 (4.30-5.90) m/uL Hgb 10.5 L (13.5-17.5) gm/dL Hct 36.6 L (37.0-53.0) % MCV 67 L (80-100) fL MCH 19 L (26-34) pg MCHC 29 L (32-36) gm/dL RDW Coeff of Jacek 18.5 H (11.5-15.5) % Plt Count 109 L (140-440) K/uL Neut % (Auto) 65.6 (42.0-72.0) % Lymph % (Auto) 20.1 (20-44) % [place] % (Auto) 8.7 (0.0-11.0) % Eos % (Auto) 4.5 (0.0-7.0) % Baso % (Auto) 0.9 (0.0-3.0) % Neut # (Auto) 3.61 (1.7-7.0) K/uL Lymph # (Auto) 1.11 (0.90-2.90) K/uL [place] # (Auto) 0.50 (0.00-0.90) K/UL Eos # (Auto) 0.25 (0.00-0.50) K/uL Baso # (Auto) 0.05 (0.00-0.30) K/uL Abs Immat Gran (auto) 0.01 (0.00-0.30) K/uL Imm/Tot Granulo (auto) 0.2 % Diff Slide Review Acceptable Review (Acceptable) INR 1.01 (0.91-1.10) Sodium 139 (135-149) mmol/L Potassium 4.1 (3.6-5.1) mmol/L Chloride 107 (96-114) mmol/L Carbon Dioxide 24 (20-32) mmol/L Anion Gap 8 (7-15) mEq/L BUN 22 (7-30) mg/dL Creatinine 1.0 (0.5-1.5) mg/dL Estimated Creat Clear 54.99 Estimated GFR 74 ml/min Glucose 135 H (60-115) mg/dL Calcium 9.1 (8.4-10.6) mg/dL Total Bilirubin 0.8 (0.1-1.5) mg/dL AST 34 (12-35) U/L ALT 23 (4-50) U/L Alkaline Phosphatase 60 (40-150) U/L Troponin I < 0.01 (0.01-0.04) ng/mL Total Protein 7.1 (6.0-8.3) g/dL Albumin 4.6 (3.3-5.0) g/dL Imaging Data CT scan - head: Radiologist's impression: FINDINGS: The brain shows no sign of mass lesion, mass effect, hemorrhage, or edema. There are involutional changes. There is moderate to severe cortical atrophy and there is moderate to severe white matter disease. There is no hydrocephalus. Nonacute appearing bilateral subcortical infarcts. The visualized portions of the orbits are normal in appearance. The osseous structures are normal in appearance with no sign of abnormality in the skull base or calvarium. The above findings were relayed to Dr. Arcos at 9:32 a.m. on July 31, 2024 IMPRESSION: Involutional changes. No acute-appearing findings. CTA Head and Neck: Attestation: I have reviewed the pertinent imaging results. Radiologist's impression: Preliminary Report: No high-grade stenosis in the neck. Both vertebral arteries are patent. No dissection. Right intra parotid mass measure 1.6 cm for which follow-up is advised in the nonacute to setting. No large vessel occlusion or high-grade stenosis intracranially. Read by:?Collin Zuñiga MD @07/31/2024 9:38:50 AM Chest x-ray: Attestation: I have reviewed the pertinent imaging results. Radiologist's impression: IMPRESSION: No evidence of active pulmonary disease when compared to November 16, 2022. ECG Data Attestation: I personally reviewed and interpreted this ECG as follows: Interpretation: Normal sinus rhythm Rate: 75 GA: 186 QRS axis: Right bundle-branch block. Normal QRS axis. ST segment/T wave: No ST segment elevation or depression. QTc: 486 Discharge Plan Discharge Clinical Impression: Parotid mass, Stroke Patient Disposition: Admitted As Observation
[2024-07-31 09:17] LABS: Basophils Absolute Auto 0.05 K/uL (0.00-0.30); Basophils Percent Auto 0.9 % (0.0-3.0); Eosinophils Absolute Auto 0.25 K/uL (0.00-0.50); Eosinophils Percent Auto 4.5 % (0.0-7.0); Hematocrit 36.6 % (37.0-53.0); Hemoglobin* 10.5 gm/dL (13.5-17.5); Immature Granulocytes Abs Auto 0.01 K/uL (0.00-0.30); Immature Granulocytes Pct Auto 0.2 %; Lymphocytes Absolute Auto 1.11 K/uL (0.90-2.90); Lymphocytes Percent Auto 20.1 % (20-44); Mean Corpuscular HGB Conc 29 gm/dL (32-36); Mean Corpuscular Hemoglobin 19 pg (26-34); Mean Corpuscular Volume 67 fL (80-100); Monocytes Percent Auto 8.7 % (0.0-11.0); Neutrophils Absolute Auto 3.61 K/uL (1.7-7.0); Neutrophils Percent Auto 65.6 % (42.0-72.0); Platelet Count* 109 K/uL (140-440); RDW Coefficient of Variation % 18.5 % (11.5-15.5); Red Blood Count 5.46 m/uL (4.30-5.90); White Blood Count* 5.51 K/uL (4.50-11.00)
[2024-07-31 09:20] LABS: Slide Review Reflex Yes
[2024-07-31 09:29] LABS: Albumin* 4.6 g/dL (3.3-5.0); Chloride* 107 mmol/L (96-114); Potassium* 4.1 mmol/L (3.6-5.1); Sodium* 139 mmol/L (135-149)
[2024-07-31 09:32] LABS: Alanine Aminotransferase* 23 U/L (4-50); Alkaline Phosphatase* 60 U/L (40-150); Anion Gap 8 mEq/L (7-15); Aspartate Amino Transferase* 34 U/L (12-35); Bilirubin Total* 0.8 mg/dL (0.1-1.5); Blood Urea Nitrogen* 22 mg/dL (7-30); Calcium* 9.1 mg/dL (8.4-10.6); Carbon Dioxide* 24 mmol/L (20-32); Est. Creatinine Clearance* 54.99; Estimated Glomerular Filt Rate 74 ml/min; Glucose* 135 mg/dL (60-115); Total Protein* 7.1 g/dL (6.0-8.3)
[2024-07-31 09:33] LABS: INR 1.01 (0.91-1.10); Prothrombin Time 14.2 Seconds
[2024-07-31 09:42] LABS: Slide Review Acceptable Review (Acceptable)
[2024-07-31 09:46] LABS: Troponin I* < 0.01 ng/mL (0.01-0.04)
--- OUTSIDE RECORDS SUMMARY | 2024-07-31 10:10 | XMS_ITS | Clinical Summary ---
Author Organization [facility] Address [address] [place] [id number] Care Team Providers Care Design Engineering Manager Name Role Phone Jorge Moreno MD Primary [...] on file Legal Sex Male 7:26 AM [employer] Gender Identity Not on file Sexual Orientation [...] 9:36 AM 12/29/2011 7:37 PM Care Teams Design Engineering Manager Relationship Specialty Start Date End Date Jorge Moreno MD [address] [place] [id number] PCP - General 04/28/07
--- NOTE | 2024-07-31 10:27 | CRLHL7_ITS ---
For Patients: As a result of the Century Cures Act, medical imaging exams and procedure reports are released immediately into your electronic medical record. You may view this report before your referring provider. If you have questions, please contact your health care provider. Indication: Stroke. Left arm dysmetria. Technique: Multiplanar multisequence noncontrast MR images of the brain. Comparison: CT brain 07/31/2024. Findings: Small area of cortically based diffusion restriction within the high anterior right parietal lobe, with involvement of the right postcentral gyrus, compatible with acute infarction. Gpsi-mc-cztigoap cortically predominant volume loss. No midline shift. Scattered and patchy FLAIR hyperintensities in the supratentorial white matter, typical for tkhk-cv-ckouumlv chronic microvascular ischemic changes. No intracranial hemorrhage or pathologic extra-axial fluid collection. The major arterial flow voids of the skull base are preserved. Globes are symmetric. Severely opacified hypoplastic right maxillary sinus. Trace left mastoid fluid. Circumscribed T2 hyperintense 1.2 cm lesion in the superficial right parotid gland is incompletely visualized. Impression: 1. Small cortically based acute infarction within the high anterior right parietal lobe with involvement of the right postcentral gyrus 2. Vzfu-br-qdahqwwo chronic microvascular ischemic changes and diffuse cerebral volume loss. 3. Severely opacified right maxillary sinus. 4. Circumscribed lesion within the right parotid gland. This finding was better characterized on prior ultrasound. Dictated by Mike Larios MD @ 07/31/2024 11:43:23 AM (Electronically Signed)
[2024-07-31] MEDS: ASPIRIN EC 325 MG TABLET PO (12:58)
[2024-07-31] MEDS: CLOPIDOGREL 75 MG TABLET PO (14:23)
--- NOTE | 2024-07-31 14:26 | P.IMHP_ITS ---
Assessment and Plan Assessment and plan (1) Stroke: Problem comment: Left upper extremity affected - poor coordination MRI shows Small cortically based acute infarction within the high anterior right parietal lobe with involvement of the right postcentral gyrus CTA head shows no cerebral aneurysm or large vessel occlusion. Intracranial atherosclerosis with moderate narrowing in the right posterior cerebral artery and left vertebral artery CTA neck shows patent cervical vasculature ED provider discussed with tele neurology, Dr. 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 MRI shows 1.6cm solid right parotid lesion Outpatient follow-up with PCP to include neck MRI with contrast or tissue sampling as recommended Status: Acute (3) Obstructive sleep apnea: Problem comment: Continue CPAP Status: Acute (4) Anemia: Problem comment: Chronic, history of low MCV, takes an iron supplement daily Hemoglobin 10.5, monitor Status: Acute (5) Hypertension: Problem comment: Allowing for permissive HTN Restart metoprolol tomorrow Status: Acute (6) Hyperlipidemia: Problem comment: Pravastatin 80mg qod - increase to daily per Neurology recommendations. Previously did not tolerate daily dosing, muscle/joint aches, will monitor and follow up with PCP Lipid panel ordered Status: Acute (7) GERD (gastroesophageal reflux disease): Problem comment: Continue PPI Status: Acute Total Time Spent Total Time Spent: Today I spent 75 minutes seeing the patient, reviewing Expanse and EPIC notes/diagnostics, discussing the care plan with our care time that includes social work, PT/OT, pharmacy, RT, longterm and documenting my impressions and plan in the medical record. Hospitalist- H&P: HPI History of Present Illness Date Seen: 07/31/24 Chief complaint: having brain - left arm Narrative: Maciej Han is a 83 year old male past medical history significant for hypertension, hyperlipidemia, chronic sinusitis, fatigue, erectile dysfunction, LEIT, anemia, obesity, GERD is admitted to the medical floor from the ED with acute CVA. Patient is seen with , daughter, son-in-law at bedside. Patient reports feeling his usual self yesterday, without recent acute illness. Went to bed around 11:00 p.m. feeling normal. Reports sleeping well overnight without waking. Woke around 7:00 a.m. this morning and noticed his left arm was not functioning correctly. Denies feeling numb or weakness but was having difficulty moving it and unable to use it to get his CPAP mask off. Was not able to button his shirt. Denies facial asymmetry, drooping, slurred speech or aphasia. Denies change in vision or hearing. No left lower extremity weakness or changes. Denies recent headache or dizziness. Denies chest pain or shortness of breath. No recent fevers. Denies abdominal pain, nausea, vomiting. No change in stools or urination. Nonsmoker. Drinks 2-3 drinks weekly. PCP is Dr. Moreno. Review of Systems Narrative: REVIEW OF SYSTEMS: Complete review of systems performed and negative unless otherwise stated in HPI or below. [facility] Medical History (Updated 07/31/24 @ 17:25 by Stefanie Villegas PA-C) Mixed hearing loss ?H90.8 - Mixed conductive and sensorineural hearing loss, unspecified (ICD- 10) Chronic sinusitis ?J32.9 - Chronic sinusitis, unspecified (ICD-10) Fatigue ?R53.83 - Other fatigue (ICD-10) Erectile dysfunction ?N52.9 - Male erectile dysfunction, unspecified (ICD-10) Acute postoperative anemia due to greater than expected blood loss ?D62 - Acute posthemorrhagic anemia (ICD-10) Pneumonia ?J18.9 - Pneumonia, unspecified organism (ICD-10) Sleep apnea treated with continuous positive airway pressure (CPAP) ?G47.30 - Sleep apnea, unspecified (ICD-10) GERD (gastroesophageal reflux disease) ?K21.9 - Gastro-esophageal reflux disease without esophagitis (ICD-10) Pulmonary hypertension ?I27.20 - Pulmonary hypertension, unspecified (ICD-10) Surgical History History of myringotomy (09/22/19) ?Z98.890 - Other specified postprocedural states (ICD-10) Status post total hip replacement, 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) ?Z96.641 - Presence of right artificial hip joint (ICD-10) History of back surgery ?Z98.890 - Other specified postprocedural states (ICD-10) H/O lithotripsy ?Z98.890 - Other specified postprocedural states (ICD-10) Family History Father Coronary artery disease Stroke Social History What is your current living situation?: I presently have a place to live Problems where you live: no known problems Problems where you live details: n/a In the past 12 months, utilities in danger of being shut off: no In past 12 months, lack of transportation kept you from medical appts, meetings, work, or getting things needed for daily living: no In the past 12 mos, have been you worried that your food would run out before you had money to buy more?: never true In the past 12 mos, the food you bought just didn't last and you didn't have money to buy more?: never true Smoking Status: Never smoker Do you use any of these nicotine containing products: None How often do you have a drink containing alcohol: 2-3 times a week Alcohol type: beer How many standard drinks containing alcohol do you have on a typical day: 1 or 2 How often do you have six or more drinks on one occasion: Never AUDIT-C Alcohol total score: 3 Non-prescribed substance use: denies use Caffeine: No How often does anyone, including family, friends and others, physically hurt you : never How often does anyone, including family, friends and others, insult or talk down to you: never How often does anyone, including family, friends and others, threaten you with harm: never How often does anyone, including family, friends and others, scream or curse at you: never Meds Home Medications and Allergies Home Medications ?Medication ?Instructions ?Recorded ?Confirmed ?Type aspirin 81 mg tablet,delayed 81 mg PO DAILY 07/31/24 07/31/24 History release triamcinolone acetonide 0.1 % 1 applic topical BID PRN 07/31/24 07/31/24 History topical cream Allergies Allergy/AdvReac Type Severity Reaction Status Date / Time epinephrine Allergy Severe Depression Verified 07/31/24 10:19 Exam Narrative: Exam Narrative: PHYSICAL EXAM General: Pleasant, conversant, NAD HEENT: Normocephalic, atraumatic, sclera white, EOMI, oral mucosa moist Cardiovascular: RRR, S1S2. No pitting edema Pulmonary: CTA bilaterally without rhonchi, rales, expiratory wheezes. No dyspnea Abdominal: Soft, nondistended, NTTP Neurological: Alert, answering questions appropriately, cranial nerves intact, muscle strength UE/LE 5/5 eq latrice, finger to nose off Extremities: No gross joint deformity or swelling. AROMI. Neurovascularly intact Skin: Warm, dry. Const: Vital Signs, click to edit/add: Vital Signs - 24 hr 07/31/24 08:52 07/31/24 09:00 07/31/24 09:40 Temperature 97.4 F L Pulse Rate 70 Pulse Rate [Pulse Oximeter] 77 77 Respiratory Rate 18 18 Blood Pressure Blood Pressure [Ri ght Upper Arm] 155/79 H 155/79 H Pulse Oximetry 98 98 96 Oxygen Delivery Me thod Room Air Room Air 07/31/24 09:44 07/31/24 09:45 07/31/24 10:00 Temperature Pulse Rate 70 Pulse Rate [Pulse Oximeter] 70 65 Respiratory Rate 18 18 16 Blood Pressure 142/72 H Blood Pressure [Ri ght Upper Arm] 142/72 H 145/82 H Pulse Oximetry 96 96 96 Oxygen Delivery Co thod Room Air Room Air 07/31/24 10:15 07/31/24 10:30 07/31/24 12:00 Temperature Pulse Rate Pulse Rate [Pulse Oximeter] 66 61 60 Respiratory Rate 18 17 16 Blood Pressure Blood Pressure [Ri ght Upper Arm] 137/70 149/73 H 124/56 L Pulse Oximetry 95 95 95 Oxygen Delivery Me thod Room Air Room Air 07/31/24 12:06 07/31/24 12:10 07/31/24 12:11 Temperature Pulse Rate 58 L 57 L Pulse Rate [Pulse Oximeter] Respiratory Rate 16 7 L 10 L Blood Pressure 124/56 L Blood Pressure [Ri ght Upper Arm] Pulse Oximetry 98 97 98 Oxygen Delivery Me thod 07/31/24 12:15 07/31/24 12:15 07/31/24 12:17 Temperature Pulse Rate 56 L 56 L Pulse Rate [Pulse Oximeter] 62 Respiratory Rate 10 L 18 7 L Blood Pressure 131/67 Blood Pressure [Ri ght Upper Arm] 131/67 Pulse [facility]ximetry 99 [facility] 12:20 07/31/24 12:30 07/31/24 12:33 Temperature Pulse Rate Pulse Rate [Pulse Oximeter] Respiratory Rate 4 L 8 L 11 L Blood Pressure 160/83 H Blood Pressure [Ri ght Upper Arm] Pulse Oximetry 81 L Oxygen Delivery [facility] 07/31/24 12:40 07/31/24 12:45 07/31/24 12:45 Temperature Pulse Rate Pulse Rate [Pulse Oximeter] 61 Respiratory Rate 12 11 L 15 Blood Pressure Blood Pressure [Ri ght Upper Arm] 153/81 H Pulse Oximetry 96 Oxygen Delivery [facility] Room Air 07/31/24 12:47 07/31/24 12:50 07/31/24 13:00 Temperature Pulse Rate Pulse Rate [Pulse Oximeter] Respiratory Rate 19 9 L 17 Blood Pressure 153/81 H Blood Pressure [Ri ght Upper Arm] Pulse Oximetry Oxygen Delivery [facility] 07/31/24 13:10 07/31/24 13:15 07/31/24 13:15 Temperature Pulse Rate Pulse Rate [Pulse Oximeter] 59 L Respiratory Rate 8 L 20 20 Blood Pressure Blood Pressure [Ri ght Upper Arm] 140/89 H Pulse Oximetry 96 Oxygen Delivery [facility] 07/31/24 13:17 07/31/24 13:20 07/31/24 13:30 Temperature Pulse Rate Pulse Rate [Pulse Oximeter] Respiratory Rate 16 17 16 Blood Pressure 140/89 H Blood Pressure [Ri ght Upper Arm] Pulse Oximetry Oxygen Delivery [facility] 07/31/24 13:35 07/31/24 13:45 07/31/24 13:47 Temperature Pulse Rate Pulse Rate [Pulse Oximeter] Respiratory Rate 12 13 Blood Pressure 137/80 130/70 Blood Pressure [Ri ght Upper Arm] Pulse Oximetry Oxygen Delivery [facility] Hospitalist - H&P: Result Labs Labs: Short CBC 07/31/24 Range/Units 09:05 WBC 5.51 (4.50-11.00) K/uL Hgb 10.5 L (13.5-17.5) gm/dL Hct 36.6 L (37.0-53.0) % Plt Count 109 L (140-440) K/uL BMP 07/31/24 09:05 Sodium 139 Potassium 4.1 Chloride 107 Carbon Dioxide 24 BUN 22 Creatinine 1.0 Glucose 135 H Calcium 9.1 Cardiac Enzymes 07/31/24 Range/Units 09:05 Troponin I < 0.01 (0.01-0.04) ng/mL Liver Function 07/31/24 Range/Units 09:05 Total Bilirubin 0.8 (0.1-1.5) mg/dL AST 34 (12-35) U/L ALT 23 (4-50) U/L Alkaline Phosphatase 60 (40-150) U/L Albumin 4.6 (3.3-5.0) g/dL ECG Attestation: I personally reviewed and interpreted this ECG as follows: Interpretation: NSR, ventricular rate 75, QTC 46 Imaging MR Brain: Attestation: I have reviewed the pertinent imaging results. Radiologist's impression: Small area of cortically based diffusion restriction within the high anterior right parietal lobe, with involvement of the right postcentral gyrus, compatible with acute infarction. Oxlz-jr-ckvmyesa cortically predominant volume loss. No midline shift. Scattered and patchy FLAIR hyperintensities in the supratentorial white matter, typical for [id number]-fc-[id number] chronic microvascular ischemic changes. No intracranial hemorrhage or pathologic extra-axial fluid collection. The major arterial flow voids of the skull base are preserved. Globes are symmetric. Severely opacified hypoplastic right maxillary sinus. Trace left mastoid fluid. Circumscribed T2 hyperintense 1.2 cm lesion in the superficial right parotid gland is incompletely visualized. Impression: 1. Small cortically based acute infarction within the high anterior right parietal lobe with involvement of the right postcentral gyrus 2. Kcrn-tj-rzihpkrm chronic microvascular ischemic changes and diffuse cerebral volume loss. 3. Severely opacified right maxillary sinus. 4. Circumscribed lesion within the right parotid gland. This finding was better characterized on prior ultrasound. CT scan - head: Attestation: I have reviewed the pertinent imaging results. Radiologist's impression: The brain shows no sign of mass lesion, mass effect, hemorrhage, or edema. There are involutional changes. There is moderate to severe cortical atrophy and there is moderate to severe white matter disease. There is no hydrocephalus. Nonacute appearing bilateral subcortical infarcts. The visualized portions of the orbits are normal in appearance. The osseous structures are normal in appearance with no sign of abnormality in the skull base or calvarium. The above findings were relayed to Dr. Arcos at 9:32 a.m. on July 31, 2024 IMPRESSION: Involutional changes. No acute-appearing findings. CTA head: Attestation: I have reviewed the pertinent imaging results. Radiologist's impression: There is no cerebral aneurysm or large vessel occlusion. There is intracranial atherosclerosis with moderate narrowing in the right posterior cerebral artery and left vertebral artery. The right internal carotid artery is normal. The right middle cerebral artery and its branches are normal. The right anterior cerebral artery and its branches are normal. The left internal carotid artery is normal. The left middle cerebral artery and its branches are normal. The left anterior cerebral artery and its branches are normal. The anterior communicating artery is well visualized and appears normal. The right vertebral artery and PICA are normal. The right vertebral artery is dominant. The basilar artery is patent and appears normal. The left posterior cerebral artery is normal. IMPRESSION: 1. No cerebral aneurysm or large vessel occlusion. 2. Intracranial atherosclerosis with moderate narrowing in the right posterior cerebral artery and left vertebral artery. CTA neck: Attestation: I have reviewed the pertinent imaging results. Radiologist's impression: The origins of the great vessels from the aortic arch are patent. The origin of the right vertebral artery is patent. The origin of the left vertebral artery is patent. The common carotid arteries are patent. There is no stenosis at the origin of the right internal carotid artery. There is no stenosis at the origin of the left internal carotid artery. The rest of the cervical segments of the internal carotid arteries are patent up to the skull base. The vertebral arteries are codominant. The cervical segments of the vertebral arteries are patent up to the skull base. The visualized lung apices are unremarkable. The thyroid gland is unremarkable. The soft tissues of the neck demonstrate a 1.6cm solid lesion in the right parotid gland. There are degenerative changes in the cervical spine. IMPRESSION: 1. Patent cervical vasculature. 2. 1.6cm solid right parotid lesion. Further evaluation with a neck MRI with contrast or tissue sampling is recommended. Chest x-ray: Attestation: I have reviewed the pertinent imaging results. Radiologist's impression: TUBES AND LINES: None. HEART AND MEDIASTINUM: The heart size is normal. The mediastinal contour appears normal for patient age. LUNGS AND PLEURAL SPACES: The lungs appear normal.The pleural spaces are unremarkable. OSSEOUS STRUCTURES: Age-appropriate appearance. No acute focal finding. IMPRESSION: No evidence of active pulmonary disease when compared to November 16, 2022.
[2024-07-31] MEDS: OMEPRAZOLE 20 MG CAPSULE DR 40 MG PO (20:45)
[2024-07-31] MEDS: PRAVASTATIN SODIUM 20 MG TABLET 80 MG PO (20:46)
[2024-07-31] MEDS: ENOXAPARIN 40 MG/0.4 ML INJ SUBCUT (20:46)
[2024-07-31] MEDS: polyethylene glycoL 3350 17 GM PACK PO (20:54)
[2024-07-31] MEDS: SODIUM CHLORIDE 0.9 % (FLUSH) 10 ML SYRINGE 5 ML IVF (21:32)
[2024-08-01 00:12] VITALS: PULSE 60
[2024-08-01 00:18] VITALS: PULSE 58
[2024-08-01 03:00] VITALS: BP 159/90; PULSE 57; RESP 16; TEMP 36.4; O2SAT 96
[2024-08-01 03:36] VITALS: PULSE 56
--- NOTE | 2024-08-01 06:48 | PC.NURSE ---
End of shift [id number]: A&O pleasant and cooperative. VSS. some disorientation in left arm but pt reports he feels like it has improved. 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 neuros otherwise unremarkable. ambulating in room w/ sba. using call light appropriately.
[2024-08-01 06:55] LABS: Hematocrit 32.6 % (37.0-53.0); Hemoglobin* 9.6 gm/dL (13.5-17.5); Mean Corpuscular HGB Conc 29 gm/dL (32-36); Mean Corpuscular Hemoglobin 20 pg (26-34); Mean Corpuscular Volume 67 fL (80-100); Platelet Count* 95 K/uL (140-440); Red Blood Count 4.89 m/uL (4.30-5.90); White Blood Count* 4.19 K/uL (4.50-11.00)
[2024-08-01 07:00] VITALS: BP 138/91; PULSE 60; PULSE 63; RESP 16; TEMP 36.5; O2SAT 92
[2024-08-01 07:02] LABS: Chloride* 107 mmol/L (96-114); Sodium* 137 mmol/L (135-149)
[2024-08-01 07:05] LABS: Anion Gap 8 mEq/L (7-15); Blood Urea Nitrogen* 22 mg/dL (7-30); Carbon Dioxide* 22 mmol/L (20-32); Cholesterol* 128 mg/dL (90-199); Creatinine* 1.1 mg/dL (0.5-1.5); Est. Creatinine Clearance* 49.99; Estimated Glomerular Filt Rate 66 ml/min; Glucose* 102 mg/dL (60-115); HDL Cholesterol* 38 mg/dL (>=40); LDL Cholesterol Calculated 68 mg/dL (<100); Triglycerides* 109 mg/dL (40-149)
[2024-08-01 07:15] LABS: Hemoglobin A1C* 5.7 % (0-5.6)
[2024-08-01 07:16] LABS: Slide Review Reflex Yes
[2024-08-01 07:42] LABS: Slide Review Acceptable Review (Acceptable)
[2024-08-01] MEDS: OMEPRAZOLE 20 MG CAPSULE DR 40 MG PO (08:52)
[2024-08-01] MEDS: SODIUM CHLORIDE 0.9 % (FLUSH) 10 ML SYRINGE 5 ML IVF (08:53)
[2024-08-01] MEDS: CLOPIDOGREL 75 MG TABLET PO (08:53)
[2024-08-01] MEDS: ASPIRIN 81 MG TAB.CHEW 324 MG PO (08:53)
[2024-08-01 11:00] VITALS: BP 127/59; PULSE 57; RESP 16; TEMP 36.6; O2SAT 94
--- NOTE | 2024-08-01 12:15 | PC.NURSE ---
Bubble study completed. Patient tolerated well.
--- NOTE | 2024-08-01 12:45 | P.DS_ITS ---
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 Arcos followed during stay; recommends continuing 81mg ASA daily, adding 21 days of Plavix 75mg daily - reassuring telemetry during stay, Zio patch upon d/c - no SNF needs identified by PT/OT (recommend outpatient OT f/u) (2) Parotid mass: Status: Acute Problem details: - Incidental finding. MRI shows 1.6cm solid right parotid lesion (pt aware - has seen ENT in the past) (3) Obstructive sleep apnea: Status: Acute Problem details: - Continue CPAP (4) Anemia: Status: Acute Problem details: - chronic, microcytic, last colonoscopy 2012 - continue outpatient f/u (5) Hypertension: Status: Acute Problem details: - permissive HTN during stay (6) Hyperlipidemia: Status: Acute Problem details: - typically takes Pravastatin 80mg qod, Neurology recommends increase to daily administration (previously had muscle aching) (7) GERD (gastroesophageal reflux disease): Status: Acute Problem details: - Continue PPI DS: Summary Hospital Course Hospital Course: Maciej was admitted to the hospital on 07/31/2024 for left upper extremity symptoms (alien hand syndrome); MRI revealed an acute infarction in the right parietal lobe. Also noted to have R parotid gland lesion (known to patient, has seen ENT in the past - will coordinate further f/u with PCP). During stay, telemetry reassuring and TTE also reassuring. Zio patch upon discharge. Followed by therapies, no acute needs identified inpatient; will see outpatient OT. Also followed by Stroke Neurology, recommended 21 days of Plavix (in addition to 81 mg of aspirin), then aspirin as monotherapy. Will continue statin, LDL excellent at 68. A1C 5.7 Maciej was medically appropriate for d/c home with and close PCP f/u on 08/01/24. Status at Discharge Functional status at discharge: independent ambulation Overall status at discharge: patient is progressing back to baseline Time Spent with Patient Time attestation: Total time spent providing and/or coordinating discharge services: Time spent: Greater than 30 minutes Exam Narrative: Exam Narrative: GEN: Alert and oriented, nontoxic HEENT: EOMIs bilaterally, no scleral icterus, no facial droop CV: RRR, No concerning murmurs R: LCTA bilaterally without concerning wheezing Ext: wwp, no concerning edema Skin: No concerning skin lesions or rashes on exposed skin Neuro: No resting tremor, mild weakness in LUE (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 and intrinsic musculature), full ROM LUE, gait normal Psych: Appropriate Const: Vital Signs, click to edit/add: Vital Signs - 24 hr 07/31/24 12:47 07/31/24 12:50 07/31/24 13:00 Temperature Pulse Rate Pulse Rate [Pulse Oximeter] Respiratory Rate 19 9 L 17 Blood Pressure 153/81 H Blood Pressure [Ri ght Arm] Blood Pressure [Ri ght Upper Arm] [facility] 07[facility] 13:10 07/31/24 13:15 07/31/24 13:15 Temperature Pulse Rate Pulse Rate [Pulse Oximeter] 59 L Respiratory Rate 8 L 20 20 Blood Pressure Blood Pressure [Ri ght Arm] Blood Pressure [Ri ght Upper Arm] 140/89 H Pulse Oximetry 96 [facility] 07/31/24 13:17 07/31/24 13:20 07/31/24 13:30 Temperature Pulse Rate Pulse Rate [Pulse Oximeter] Respiratory Rate 16 17 16 Blood Pressure 140/89 H Blood Pressure [Ri ght Arm] Blood Pressure [Ri ght Upper Arm] Pulse Oximetry [facility] 07[facility]31/24 13:35 07/31/24 13:45 07/31/24 13:47 Temperature Pulse Rate Pulse Rate [Pulse Oximeter] Respiratory Rate 12 13 Blood Pressure 137/80 130/70 Blood Pressure [Ri ght Arm] Blood Pressure [Ri ght Upper Arm] Pulse Oximetry [facility] 07/31/24 14:31 07/31/24 15:20 07/31/24 15:34 Temperature 98 F Pulse Rate 64 Pulse Rate [Pulse Oximeter] 96 Respiratory Rate 16 16 Blood Pressure Blood Pressure [Ri ght Arm] 154/83 H Blood Pressure [Ri ght Upper Arm] Pulse Oximetry 96 96 Oxygen Delivery Me thod Room Air Room Air 07/31/24 16:34 07/31/24 19:00 07/31/24 19:00 Temperature 98 F Pulse Rate Pulse Rate [Pulse Oximeter] 88 78 78 Respiratory Rate 16 Blood Pressure Blood Pressure [Ri ght Arm] 146/78 H Blood Pressure [Ri ght Upper Arm] Pulse Oximetry 96 Oxygen Delivery Me thod Room Air 07/31/24 23:39 08/01/24 00:12 08/01/24 00:18 Temperature 97.5 F L Pulse Rate 60 Pulse Rate [Pulse Oximeter] 58 L 58 L Respiratory Rate 18 Blood Pressure Blood Pressure [Ri ght Arm] 146/83 H Blood Pressure [Ri ght Upper Arm] Pulse Oximetry 96 Oxygen Delivery Me thod Room Air 08/01/24 03:00 08/01/24 03:36 08/01/24 07:00 Temperature 97.5 F L 97.7 F Pulse Rate Pulse Rate [Pulse Oximeter] 57 L 56 L 60 Respiratory Rate 16 16 Blood Pressure Blood Pressure [Ri ght Arm] 159/90 H 138/91 H Blood Pressure [Ri ght Upper Arm] Pulse Oximetry 96 92 Oxygen Delivery Me thod CPAP Room Air CPAP 08/01/24 07:00 08/01/24 07:00 Temperature Pulse Rate 63 Pulse Rate [Pulse Oximeter] 60 Respiratory Rate Blood Pressure Blood Pressure [Ri ght Arm] Blood Pressure [Ri ght Upper Arm] Pulse Oximetry Oxygen Delivery Me thod DS: Data Data Completed and Pending Labs on day of discharge: Labs from last 24 hours 08/01/24 06:12 WBC 4.19 L RBC 4.89 Hgb 9.6 L Hct 32.6 L MCV 67 L MCH 20 L MCHC 29 L Plt Count 95 L Diff Slide Review Acceptable Review Sodium 137 Potassium 4.0 Chloride 107 Carbon Dioxide 22 Anion Gap 8 BUN 22 Creatinine 1.1 Estimated Creat Clear 49.99 Estimated GFR 66 Glucose 102 Hemoglobin A1c 5.7 H Calcium 9.0 Triglycerides 109 Cholesterol 128 LDL Cholesterol, Calc 68 HDL Cholesterol 38 L Discharge Plan Discharge Disposition: Home, Self-Care Date of Admission: 07/31/24 15:34 Attending Provider on Discharge: Lizzy Mccormack Primary Care Provider: Jogre Moreno Condition: Improved Anticipated Discharge Date/Time: 08/01/24 12:33 Discharge Medications: New clopidogrel 75 mg Tablet 75 mg PO DAILY Qty: 21 0RF pravastatin 20 mg Tablet 80 mg PO HS Qty: 60 0RF Continued triamcinolone acetonide 0.1 % cream 1 applic topical BID PRN Rx Instructions: area on ankles aspirin 81 mg tablet,delayed release (DR/EC) 81 mg PO DAILY pravastatin 80 mg tablet 80 mg PO Q48H Qty: 90 1RF Patient Comments: every other night omeprazole 40 mg capsule,delayed release(DR/EC) 40 mg PO BID Qty: 180 1RF metoprolol succinate 100 mg tablet extended release 24 hr 100 mg PO DAILY Qty: 60 0RF Discharge Orders: Discharge Order (Routine); Ordered 08/01/24 Ordered By: Lizzy Mccormack Patient Education: Pravastatin (By mouth), Clopidogrel (By mouth), Ischemic Stroke (DC), Zio (Home Heart Monitor) Additional Instructions: See if you can increase your Pravastatin to EVERY night for further stroke prevention. We are ADDING Plavix daily for 21 days only - then you stay on your aspirin daily forever. Discuss further f/u for your parotid lesion with Dr. Moreno Activity Level: Activity as Tolerated Activity Detail: Minimize driving and extra-curricular activities for the next couple of weeks. Be very careful with woodworking while on Plavix for the next 21 days. Discharge Diet: Regular Follow Up Appointments: Jorge Moreno MD [Primary Care Provider] - 08/08/24 9:30 am () Forms: [employer] Info Instructions
--- NOTE | 2024-08-01 15:13 | PC.NURSE ---
Pt discharged @ 1511 via wheelchair, accompanied by and family member. Back to home. IV removed. Pt showered and tolerated well prior to zio patch placement. Education given. Discharge forms signed. Pt AxOx4, with no active pain or nausea.
== END 2024-08-01 13:11 | disposition home or self-care (01) | DRG 66 ==
LOC: ED 13:59 → MEDSURG 14:31
PROVIDERS: Admitting Provider Physician Assistant; Emergency Provider Emergency Medicine; PCP Internal Medicine; Visit Provider Physician Assistant
DX: I63.9 Cerebral infarction, unspecified (principal); D11.0 Benign neoplasm of parotid gland; G83.24 Monoplegia of upper limb affecting left nondominant side; R29.702 NIHSS score 2; G47.30 Sleep apnea, unspecified; Z99.89 Dependence on other enabling machines and devices; D50.9 Iron deficiency anemia, unspecified; I10 Essential (primary) hypertension; E78.5 Hyperlipidemia, unspecified; K21.9 Gastro-esophageal reflux disease without esophagitis
CPT/HCPCS: 36415; 70450; 70496; 70498; 70551; 71046; 80048; 80053; 80061; 82565; 82962; 83036; 84484; 85025; 85027; 85610; 93005; 93246; 93306; 96374; 97112; 97116; 97162; 97165; 97530; 97535; 99284; 99285; 99291; A9270; J1650; Q9967

== ENCOUNTER 2024-09-26 08:11 | Outpatient (CLI) | payer MEDICARE, SELFPAY | END 2024-09-26 08:12 | disposition home or self-care (01) | LOC: NFLDREF 08:14 | PROVIDERS: PCP Internal Medicine; Visit Provider Internal Medicine | DX: D64.9 Anemia, unspecified (principal); R53.83 Other fatigue | CPT/HCPCS: 80048 ==

== ENCOUNTER 2024-10-13 11:00 | Outpatient (RCR) | payer MEDICARE, SELFPAY ==
--- NOTE | 2024-10-04 10:10 | PT.OPEX ---
[facility] [place] Outpatient Eval PT [facility] Outpatient Eval Start: 10/03/24 16:34 Freq: Status: Active Protocol: Document 10/04/24 07:18 HLA (Rec: 10/04/24 10:04 HLA [id number]) E-signed By Sarika Robledo, PT, DPT Physical Therapy Outpatient Evaluation Insurance Information Recert Due Date 01/01/25 Insurance Name Other; See Comments Insurance [employer] Information/Comments Medical Diagnosis L knee pain, OA, L medial meniscal tear PMHx of CVA, renal calculi, parotid mass, fatigue, plantar fasciitis, pulmonary HTN, OA, lumbar radiculopathy, anemia, and GERD Treating Diagnosis pain L knee, difficulty amb Imaging Report mild OA Information Referring MD Kelsey Subjective Preferred Name Maciej Subjective L knee pain July, began with any planting of the foot and rotating, going up/down stairs and getting in and out of the car. He has hx of R ROBINA and worried that his L hip was good. He went to see Dr. Cole. He does not take any pain medication. 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 He does yardwork and painting for the [employer] as well so he does need to be able to return to that. Pain Comments pain L lat patella on palpation, increases in/out of car, stairs and any twisting or pivoting on his leg. 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 Does yardwork, trimming and painting for the [employer] routinely. Precautions Treatment hx R CVA, L arm deficits he feels 90% resolved Precautions/ Contraindications Weight Bearing Weight Bear as Tolerated Status Therapy Limitations/ Hearing Systems Review Objective Range of Motion AROM L knee 0-128 L hip 0-110 flex, abd 0-30 ankle DF to 5, PF to 45 L LE WNL except DF to 5 B SLR 0-45, tight HS Strength 5/5 except L knee 4/5 grimaces with knee ext Swelling no edema noted Palpation tenderness any touch lateral patella, movement of patella medially Balance & Gait gt with mild hip flex, decreased B step length slightly , no limp noted stairs reciprocal B rails, grimaces descending with R LE, pressure on L. Posture rounded shldrs, fwd head Sensation/Reflexes intact to light touch Other/Pertinent Self-report of nausea with light activity, feeling as Objective if his head doesn't connect to his feet. Denies fear of falling with gt or activity. Functional Test LEFS 20/80 Performed & Score Assessment Assessment/ 83-year-old male with PMHx of OA, CVA has been Impression experiencing L knee pain with twisting, rotating, pivoting and gettting in/out of car. 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 Has been doing some yardwork and trimming for them recently. Pt worried his pain was at his hip, had R ROBINA and scheduled to see Dr. Cole. Hip was r/o, dx of L knee OA with hx of medial meniscal tear. PT ordered. Pt presents with weakness L quad, tight HS and HC. Jose A's negative, SLR negative for tension, L knee stable with any valgus/varus stresses. Occ reports of L post hip pain, mainly noted with HS tension. Pt was issued ex for patellar alignment/ strengthening, HS and HC stretches. We reviewed them x 2 as he indicates his memory 'isn't great.' We discussed progression in PT, ways he can increase activity at home. He does own a stationary bike and we will try that next session. I also demonstrated proper raking, lifting, shoveling, etc avoiding twist on the L knee. PT weekly is indicated to help Maciej return to work/leisure activities/chores pain free. He is aware that we would have him return to Dr. Cole if pain persists in spite of PT intervention. Plan of Care Rehabilitation Good Potential Physical Therapy Within 4-6 weeks: Goals 1. Pt will have painfree knee AROM 0-125 degrees for transfers, ADLs, and stairs independence. 2. Pt will amb 20 min no device, safely and independently for community and household ambulation. 3. 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 4. Pt will ascend/descend 13 stairs with railing independently for community mobility/work tasks. 5. Pt to demonstrate proper lifting, shoveling/raking/ vacuuming technique avoiding twist on knees. Treatment Plan/ Gait Training,Ice/Cold/Vasopneumatic,Iontophoresis, Direct Interventions Joint Mobilization,Manual Therapy,Neuromuscular Re-ed, Orthotics/Braces,Self-Care/Home Management,Therapeutic Activities,Therapeutic Exercises Frequency/Duration 1x/week x 4-6 weeks Patient Will Be Completion of LTG(s),Skills Plateau,Independent w/HEP, Discharged From Independently Progressing Therapy Evaluation Billing Untimed Code 10 Treatment Minutes PT Eval No Charge No Complexity Low Certification Information Initial 10/04/24 Certification Date Ending Certification 01/01/25 Date Provider Signature Yes Required Provider Signature POC & Medical Necessity Shows Agreement With Physician NPI Number Write NPI# Here Physician Comment/ : Change Physician Signature Please Sign/Date Here & Date Requested
== END 2025-01-25 09:15 | disposition home or self-care (01) ==
PROVIDERS: PCP Internal Medicine; Visit Provider Orthopaedic Surgery Sports Medicine
DX: M17.12 Unilateral primary osteoarthritis, left knee (principal); M72.2 Plantar fascial fibromatosis; Z51.89 Encounter for other specified aftercare
CPT/HCPCS: 97110; 97161

== ENCOUNTER 2024-12-20 08:56 | Outpatient (CLI) | payer MEDICARE, SELFPAY | END 2024-12-20 08:57 | disposition home or self-care (01) | PROVIDERS: PCP Internal Medicine; Visit Provider Internal Medicine | DX: E78.5 Hyperlipidemia, unspecified (principal); N52.9 Male erectile dysfunction, unspecified; Z12.5 Encounter for screening for malignant neoplasm of prostate | CPT/HCPCS: 80053; 80061; 84403; G0103 ==